=== PATIENT | female | born 1960 | race American Indian/Alaskan Native ===

== ENCOUNTER 2018-06-21 19:32 | Observation (INO) | payer MEDICAID ==
[2018-06-21 19:32] VITALS: BMI 51.7
[2018-06-21 20:03] LABS: BASO # 0.1 K/uL (0.0-0.2); BASO % 1.2 % (0.0-2.0); EOS # 0.2 K/uL (0.0-0.7); LYMPH # 2.5 K/uL (1.0-4.3); MEAN CELL VOLUME 88.2 fL (81.0-99.0); MEAN CORPUSCULAR HEMOGLOBIN 27.9 pg (27.0-31.0); MEAN CORPUSCULAR HGB CONC 31.6 g/dL (33.0-37.0); MEAN PLATELET VOLUME 8.9 fL (7.2-11.7); MONO # 0.7 K/uL (0.0-0.8); MONO % 8.9 % (0.0-10.0); NEUT # 4.4 K/uL (1.8-7.0); NEUT % 55.9 % (50.0-75.0); RBC 4.31 Mil/uL (3.80-5.20); RED CELL DISTRIBUTION WIDTH 15.2 % (11.5-14.5); WHITE BLOOD COUNT 7.8 K/uL (4.8-10.8)
--- NOTE | 2018-06-21 20:09 | C.PDOC ---
History Of Present Illness 57 female pt presents to the ER c/o "pressure" chest pain for x1 day in the middle of her chest. Pt reports she took 1 aspirin tablets and feels better. Associated sx includes SOB. Pt denies any other associated sx or complaints at t his time. Time Seen by Provider: 06/21/18 19:41 Chief Complaint (Nursing): Chest Pain History Per: Patient History/Exam Limitations: no limitations Onset/Duration Of Symptoms: Days (x1) Current Symptoms Are (Timing): Still Present Quality: Pressure Past Medical History Reviewed: Historical Data, Nursing Documentation, Vital Signs Vital Signs: Last Vital Signs Temp 98.6 F 06/21/18 19:36 Pulse 80 06/21/18 19:39 Resp 20 06/21/18 19:36 BP 150/63 06/21/18 19:36 Pulse Ox 98 06/21/18 19:36 - Medical History PMH: Asthma, Gastritis, HTN Family History: States: No Known Family Hx - Social History Hx Alcohol Use: No Hx Substance Use: No - Immunization History Hx Tetanus Toxoid Vaccination: No Hx Influenza Vaccination: No Hx Pneumococcal Vaccination: No Review Of Systems Except As Marked, All Systems Reviewed And Found Negative. Cardiovascular: Positive for: Chest Pain Respiratory: Positive for: Shortness of Breath Physical Exam - Physical Exam Appears: Non-toxic, No Acute Distress Skin: Normal Color, Warm, Dry Head: Atraumatic, Normacephalic Eye(s): bilateral: Normal Inspection, PERRL, EOMI Nose: Normal Oral Mucosa: Moist Chest: Symmetrical Cardiovascular: Rhythm Regular, No Murmur Respiratory: Normal Breath Sounds, No Rales, No Rhonchi, No Wheezing Gastrointestinal/Abdominal: Normal Exam, Soft, No Tenderness Extremity: Normal ROM Extremity: Bilateral: Atraumatic, Normal Color And Temperature Neurological/Psych: Oriented x3, Normal Speech ED Course And Treatment - Laboratory Results Result Diagrams: 06/21/18 19:55 06/21/18 19:55 O2 Sat by Pulse Oximetry: 98 (RA) Pulse Ox Interpretation: Normal Medical Decision Making Medical Decision Making: Assessment: chest pain plans: -- chem labs -- blood work -- EKG -- CXR [address] Perez, but there was no answer. [address] 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 I have reviewed the chart and agree that the record accurately reflects my personal performance of the history, physical exam, medical decision making, and the department course for this patient. I have also personally directed, reviewed, and agree with the discharge instructions and disposition.
[2018-06-21 20:12] LABS: ALB/GLOB RATIO 1.3 (1.0-2.1); BLOOD UREA NITROGEN 21 mg/dL (7-17); CALCIUM 9.2 mg/dl (8.6-10.4); GFR NON-AFRICAN AMERICAN > 60
[2018-06-21 20:17] LABS: ALT/SGPT 26 U/L (9-52); AST/SGOT 30 U/L (14-36)
[2018-06-21 20:23] LABS: B-TYPE NATRIURETIC PEPTIDE 99.2 pg/mL (0-900)
[2018-06-22] MEDS ORDERED: Albuterol-Ipratrop 3 mg / 0.5 (3 ml) UD INH PRN (00:58)
[2018-06-22 06:34] LABS: CK-MB 0.36 ng/mL (0.0-3.38)
[2018-06-22] MEDS: Pantoprazole 40 mg EC Tab PO SCH (09:59)
[2018-06-22] MEDS: Metoprolol Succinate 50 mg XL Tab PO SCH (09:59)
[2018-06-22] MEDS: Enoxaparin 40 mg Syringe SC SCH ×2 (10:00→10:02)
--- NOTE | 2018-06-22 12:07 | RAD ---
Date of service: 06/21/2018 PROCEDURE: CHEST RADIOGRAPH, 1 VIEW HISTORY: SOB COMPARISON: No prior FINDINGS: LUNGS: Clear. PLEURA: No pneumothorax or pleural fluid seen. CARDIOVASCULAR: No aortic atherosclerotic calcification present. Normal. OSSEOUS STRUCTURES: No significant abnormalities. VISUALIZED UPPER ABDOMEN: Normal. OTHER FINDINGS: None. IMPRESSION: No active disease.
--- NOTE | 2018-06-22 22:11 | CP.PCM.CON ---
History of Present Illness - History of Present Illness History of Present Illness: CC: Chest Pain 57 female pt presents to the ER c/o "pressure" chest pain for x1 day in the middle of her chest. Pt reports she took 1 aspirin tablets and feels better. Associated sx includes SOB. Pt denies any other associated sx or complaints at this time. Chief Complaint (Nursing): Chest Pain History Per: Patient History/Exam Limitations: no limitations Onset/Duration Of Symptoms: Days (x1) Current Symptoms Are (Timing): Still Present Quality: Pressure Past Medical History Reviewed: Historical Data, Nursing Documentation, Vital Signs Vital Signs: Last Vital Signs Temp 98.6 F 06/21/18 19:36 Pulse 80 06/21/18 19:39 Resp 20 06/21/18 19:36 BP 150/63 06/21/18 19:36 Pulse Ox 98 06/21/18 19:36 - Medical History PMH: Asthma, Gastritis, HTN Family History: States: No Known Family Hx - Social History Hx Alcohol Use: No Hx Substance Use: No - Immunization History Hx Tetanus Toxoid Vaccination: No Hx Influenza Vaccination: No Hx Pneumococcal Vaccination: No Review Of Systems Except As Marked, All Systems Reviewed And Found Negative. Cardiovascular: Positive for: Chest Pain Respiratory: Positive for: Shortness of Breath Physical Exam - Physical Exam Appears: Non-toxic, No Acute Distress Skin: Normal Color, Warm, Dry Head: Atraumatic, Normacephalic Eye(s): bilateral: Normal Inspection, PERRL, EOMI Nose: Normal Oral Mucosa: Moist Chest: Symmetrical Cardiovascular: Rhythm Regular, No Murmur Respiratory: Normal Breath Sounds, No Rales, No Rhonchi, No Wheezing Gastrointestinal/Abdominal: Normal Exam, Soft, No Tenderness Extremity: Normal ROM Extremity: Bilateral: Atraumatic, Normal Color And Temperature Neurological/Psych: Oriented x3, Normal Speech Past Patient History - Infectious Disease Hx of Infectious Diseases: None - Tetanus Immunizations Tetanus Immunization: Unknown - Past Medical History & Family History Past Medical History?: Yes - Past Social History Smoking Status: Never Smoked - CARDIAC Hx Hypertension: Yes - PULMONARY Hx Asthma: Yes - NEUROLOGICAL Hx Neurological Disorder: No - HEENT Hx HEENT Problems: No (glasses) - RENAL Hx Chronic Kidney Disease: No - ENDOCRINE/METABOLIC Hx Diabetes Mellitus Type 2: Yes - HEMATOLOGICAL/ONCOLOGICAL Hx Blood Disorders: No - INTEGUMENTARY Hx Dermatological Problems: No - MUSCULOSKELETAL/RHEUMATOLOGICAL Hx Musculoskeletal Disorders: No - GASTROINTESTINAL Hx Gastritis: Yes - GENITOURINARY/GYNECOLOGICAL Hx Genitourinary Disorders: No - PSYCHIATRIC Hx Substance Use: No - SURGICAL HISTORY Other/Comment: ENDOSCOPY - ANESTHESIA Hx Anesthesia: Yes Meds Allergies/Adverse Reactions: Allergies Allergy/AdvReac Type Severity Reaction Status Date / Time Penicillins Allergy Verified 06/21/18 19:40 - Medications Medications: Current Medications Albuterol/Ipratropium (Duoneb 3 Mg/0.5 Mg (3 Ml) Ud) 3 ml INH RQ6 PRN PRN Reason: Cough Amlodipine Besylate (Norvasc) 5 mg PO DAILY [facility] Last Admin: 06/22/18 09:59 Dose: 5 mg Aspirin (Aspirin) 325 mg PO DAILY [facility] Last Admin: 06/22/18 09:59 Dose: 325 mg Enoxaparin Sodium (Lovenox) 40 mg SC DAILY [facility] Last Admin: 06/22/18 10:02 Dose: Not Given Hydralazine HCl (Apresoline) 10 mg PO BID [facility] Last Admin: 06/22/18 17:57 Dose: 10 mg Hydrochlorothiazide (Hydrodiuril) 25 mg PO DAILY [facility] Last Admin: 06/22/18 10:00 Dose: 25 mg Loratadine (Claritin) 10 mg PO DAILY [facility] Last Admin: 06/22/18 09:59 Dose: 10 mg Losartan Potassium (Cozaar) 100 mg PO DAILY [facility] Last Admin: 06/22/18 09:59 Dose: 100 mg Metoprolol Succinate (Toprol Xl) 50 mg PO DAILY [facility] Last Admin: 06/22/18 09:59 Dose: 50 mg Pantoprazole Sodium (Protonix Ec Tab) 40 mg PO DAILY [facility] Last Admin: 06/22/18 09:59 Dose: 40 mg Rosuvastatin Calcium (Crestor) 2.5 mg PO [facility] Results - Vital Signs Recent Vital Signs: Last Vital Signs Temp 98.5 F 06/22/18 15:00 Pulse 72 06/22/18 16:30 Resp 20 06/22/18 15:00 BP 134/78 06/22/18 15:00 Pulse Ox 96 06/22/18 15:00 - Labs Result Diagrams: 06/21/18 19:55 06/21/18 19:55 Labs: Laboratory Results - last 24 hr 06/22/18 06/22/18 05:50 12:39 Total Creatine Kinase 75 66 CK-MB (Mass) 0.36 0.30 Troponin I < 0.0120 < 0.0120 Assessment & Plan - Assessment and Plan (Free Text) Assessment: 57 F with multiple cardiac risk factors admitted with chest pain relieved by Nitro and ASA Check ECHO and stress test Continue ASA and NTP
[2018-06-22] MEDS: Rosuvastatin Calcium 2.5 mg Tab PO SCH (22:37)
[2018-06-23] MEDS: Metoprolol Succinate 50 mg XL Tab PO SCH (10:21)
[2018-06-23] MEDS: Pantoprazole 40 mg EC Tab PO SCH (10:21)
--- NOTE | 2018-06-23 16:53 | HP ---
HISTORY OF PRESENT ILLNESS: The patient was admitted to the hospital complaining of chest pain. The patient . PHYSICAL EXAMINATION: GENERAL: The patient is awake, alert, oriented. VITAL SIGNS: Temperature 98, pulse 90. HEENT: Within normal limits. NECK: Supple. CHEST: Symmetrical. HEART: Regular. ABDOMEN: Soft. EXTREMITIES: No edema. IMPRESSION AND PLAN: Patient suffers from . The patient was placed on bed rest, supportive care. Jw Perez MD
--- NOTE | 2018-06-23 21:56 | CP.PCM.PN ---
Subjective - Date & Time of Evaluation Date of Evaluation: 06/23/18 Time of Evaluation: 09:50 - Subjective Subjective: Patient with no cardiac events Review Of Systems Except As Marked, All Systems Reviewed And Found Negative. Cardiovascular: Positive for: Chest Pain Respiratory: Positive for: Shortness of Breath Physical Exam - Physical Exam Appears: Non-toxic, No Acute Distress Skin: Normal Color, Warm, Dry Head: Atraumatic, Normacephalic Eye(s): bilateral: Normal Inspection, PERRL, EOMI Nose: Normal Oral Mucosa: Moist Chest: Symmetrical Cardiovascular: Rhythm Regular, No Murmur Respiratory: Normal Breath Sounds, No Rales, No Rhonchi, No Wheezing Gastrointestinal/Abdominal: Normal Exam, Soft, No Tenderness Extremity: Normal ROM Extremity: Bilateral: Atraumatic, Normal Color And Temperature Neurological/Psych: Oriented x3, Normal Speech Assessment & Plan - Assessment and Plan (Free Text) Assessment: 57 F with multiple cardiac risk factors admitted with chest pain relieved by Nitro and ASA Check ECHO and stress test Continue ASA and NTP Objective - Vital Signs/Intake and Output Vital Signs (last 24 hours): Temp Pulse Resp BP Pulse Ox 98.3 F 69 20 115/70 97 06/23/18 15:00 06/23/18 16:00 06/23/18 15:00 06/23/18 15:00 06/23/18 20:00 - Medications Medications: Current Medications Albuterol/Ipratropium (Duoneb 3 Mg/0.5 Mg (3 Ml) Ud) 3 ml INH RQ6 PRN PRN Reason: Cough Amlodipine Besylate (Norvasc) 5 mg PO DAILY [facility] Last Admin: 06/23/18 10:20 Dose: 5 mg Aspirin (Aspirin) 325 mg PO DAILY [facility] Last Admin: 06/23/18 10:20 Dose: 325 mg Enoxaparin Sodium (Lovenox) 40 mg SC DAILY [facility] Last Admin: 06/22/18 10:02 Dose: Not Given Hydralazine HCl (Apresoline) 10 mg PO BID [facility] Last Admin: 06/23/18 18:01 Dose: 10 mg Hydrochlorothiazide (Hydrodiuril) 25 mg PO DAILY [facility] Last Admin: 06/23/18 10:21 Dose: 25 mg Loratadine (Claritin) 10 mg PO DAILY [facility] Last Admin: 06/23/18 10:21 Dose: 10 mg Losartan Potassium (Cozaar) 100 mg PO DAILY [facility] Last Admin: 06/23/18 10:21 Dose: 100 mg Metoprolol Succinate (Toprol Xl) 50 mg PO DAILY [facility] Last Admin: 06/23/18 10:21 Dose: 50 mg Pantoprazole Sodium (Protonix Ec Tab) 40 mg PO DAILY [facility] Last Admin: 06/23/18 10:21 Dose: 40 mg Rosuvastatin Calcium (Crestor) 2.5 mg PO [facility] Last Admin: 06/22/18 22:37 Dose: 2.5 mg - Labs Labs: 06/21/18 19:55 06/21/18 19:55
[2018-06-23] MEDS: Rosuvastatin Calcium 2.5 mg Tab PO SCH (22:22)
[2018-06-24] MEDS ORDERED: Caffeine Citrated **INJ** 20 MG/ML IV ONE (07:45)
--- NOTE | 2018-06-24 08:19 | CP.PCM.PN ---
Subjective - Date & Time of Evaluation Date of Evaluation: 06/24/18 Time of Evaluation: 08:14 - Subjective Subjective: Medicine Progress Note - Dr Perez's Service Patient seen and examined at bedside. Patient was admitted for chest pressure that improved with aspirin. States that chest pressure has resolved. States that she did have a stress test and cardiac cath before in the past. From previous documentation in [facility] it appears that cath was at [facility] in 2014 and was normal. Patient is NPO for stress test today. Offers no complaints at this time. Objective - Vital Signs/Intake and Output Vital Signs (last 24 hours): Temp Pulse Resp BP Pulse Ox 98.3 F 65 20 115/70 97 06/23/18 15:00 06/24/18 00:46 06/23/18 15:00 06/23/18 15:00 06/24/18 03:58 - Medications Medications: Current Medications Albuterol/Ipratropium (Duoneb 3 Mg/0.5 Mg (3 Ml) Ud) 3 ml INH RQ6 PRN PRN Reason: Cough Amlodipine Besylate (Norvasc) 5 mg PO DAILY [facility] Last Admin: 06/23/18 10:20 Dose: 5 mg Aspirin (Aspirin) 325 mg PO DAILY [facility] Last Admin: 06/23/18 10:20 Dose: 325 mg Enoxaparin Sodium (Lovenox) 40 mg SC DAILY [facility] Last Admin: 06/22/18 10:02 Dose: Not Given Hydralazine HCl (Apresoline) 10 mg PO BID [facility] Last Admin: 06/23/18 18:01 Dose: 10 mg Hydrochlorothiazide (Hydrodiuril) 25 mg PO DAILY [facility] Last Admin: 06/23/18 10:21 Dose: 25 mg Loratadine (Claritin) 10 mg PO DAILY [facility] Last Admin: 06/23/18 10:21 Dose: 10 mg Losartan Potassium (Cozaar) 100 mg PO DAILY [facility] Last Admin: 06/23/18 10:21 Dose: 100 mg Metoprolol Succinate (Toprol Xl) 50 mg PO DAILY [facility] Last Admin: 06/23/18 10:21 Dose: 50 mg Pantoprazole Sodium (Protonix Ec Tab) 40 mg PO DAILY [facility] Last Admin: 06/23/18 10:21 Dose: 40 mg Rosuvastatin Calcium (Crestor) 2.5 mg PO HS [facility] Last Admin: 06/23/18 22:22 Dose: 2.5 mg - Labs Labs: 06/21/18 19:55 06/21/18 19:55 - Constitutional Appears: Non-toxic, No Acute Distress - Head Exam Head Exam: ATRAUMATIC, NORMAL INSPECTION, NORMOCEPHALIC - Eye Exam Eye Exam: EOMI, Normal appearance - ENT Exam ENT Exam: Mucous Membranes Moist - Neck Exam Neck Exam: Full ROM - Respiratory Exam Respiratory Exam: Clear to Ausculation Bilateral, NORMAL BREATHING PATTERN. abs ent: Rales, Rhonchi, Wheezes - Cardiovascular Exam Cardiovascular Exam: REGULAR RHYTHM, +S1, +S2 - GI/Abdominal Exam GI & Abdominal Exam: Soft. absent: Guarding, Rigid, Tenderness - Extremities Exam Extremities Exam: absent: Calf Tenderness Additional comments: +2 lower extremity edema bilaterally - Neurological Exam Neurological Exam: Alert, Awake, Oriented x3 - Skin Skin Exam: Normal Color, Warm Assessment and Plan - Assessment and Plan (Free Text) Assessment: Chest pain r/o ACS -Stable afebrile -Observe on telemetry -Troponins negative x 3 -EKG showed NSR at 69 bpm, left anterior fascicular block -NPO for stress test today -Echocardiogram report pending -Continue ASA 81 mg PO daily -Cardiology on consult, Dr Lopes, help appreciated Hypertension -Hydralazine 10mg PO BID -HCTZ 25mg PO daily -Losartan 100mg PO daily -Toprol XL 50mg PO daily Hyperlipidemia -F/U lipid panel -Continue Crestor 2.5mg PO HS Impaired Glucose Tolerance -F/U A1C History of asthma -Duonebs prn -Claritin 10mg PO daily GI/DVT ppx: -Protonix 40mg PO daily -Lovenox 40mg SC daily DISPO: Awaiting Stress test results. July D/C pending cardiology clearance. Plan discussed with Dr Moses Balbuena DO PGY-2
--- NOTE | 2018-06-24 12:23 | CARD ---
APPROVED REPORT Date of service: 06/21/2018 EKG Measurement Heart [id number] <Conclusion> Normal sinus rhythm Left anterior fascicular block Nonspecific T wave abnormality Abnormal ECG
[2018-06-24] MEDS: Metoprolol Succinate 50 mg XL Tab PO SCH (13:31)
[2018-06-24] MEDS: Enoxaparin 40 mg Syringe SC SCH (13:31)
[2018-06-24] MEDS: Pantoprazole 40 mg EC Tab PO SCH (13:31)
[2018-06-24 16:49] LABS: BASO % 0.5 % (0.0-2.0); EOS # 0.1 K/uL (0.0-0.7); EOS % 2.2 % (0.0-4.0); HEMOGLOBIN 12.3 g/dL (11.0-16.0); LYMPH # 2.1 K/uL (1.0-4.3); LYMPH % 32.7 % (20.0-40.0); MEAN CELL VOLUME 88.5 fL (81.0-99.0); MEAN CORPUSCULAR HEMOGLOBIN 28.6 pg (27.0-31.0); MEAN CORPUSCULAR HGB CONC 32.3 g/dL (33.0-37.0); MONO # 0.5 K/uL (0.0-0.8); MONO % 7.8 % (0.0-10.0); NEUT # 3.6 K/uL (1.8-7.0); NEUT % 56.8 % (50.0-75.0); RBC 4.3 Mil/uL (3.80-5.20); RED CELL DISTRIBUTION WIDTH 15.3 % (11.5-14.5); WHITE BLOOD COUNT 6.4 K/uL (4.8-10.8)
[2018-06-24 17:06] LABS: ALB/GLOB RATIO 1.3 (1.0-2.1); ALBUMIN 4.1 g/dL (3.5-5.0); ALT/SGPT 25 U/L (9-52); AST/SGOT 26 U/L (14-36); BLOOD UREA NITROGEN 19 mg/dL (7-17); CALCIUM 9.2 mg/dl (8.6-10.4); GFR NON-AFRICAN AMERICAN > 60
[2018-06-24 17:21] VITALS: RESP 20
[2018-06-24] MEDS: Rosuvastatin Calcium 2.5 mg Tab PO SCH (21:14)
[2018-06-25 06:52] LABS: BASO % 0.8 % (0.0-2.0); EOS # 0.2 K/uL (0.0-0.7); EOS % 3.1 % (0.0-4.0); HEMOGLOBIN 11.3 g/dL (11.0-16.0); LYMPH # 2.1 K/uL (1.0-4.3); LYMPH % 34.1 % (20.0-40.0); MEAN CORPUSCULAR HEMOGLOBIN 28.7 pg (27.0-31.0); MEAN CORPUSCULAR HGB CONC 32.6 g/dL (33.0-37.0); MONO # 0.6 K/uL (0.0-0.8); MONO % 9.8 % (0.0-10.0); NEUT # 3.2 K/uL (1.8-7.0); NEUT % 52.2 % (50.0-75.0); RBC 3.95 Mil/uL (3.80-5.20); RED CELL DISTRIBUTION WIDTH 15.4 % (11.5-14.5); WHITE BLOOD COUNT 6.1 K/uL (4.8-10.8)
[2018-06-25 07:51] LABS: ALB/GLOB RATIO 1.3 (1.0-2.1); ALBUMIN 3.5 g/dL (3.5-5.0); ALT/SGPT 30 U/L (9-52); AST/SGOT 38 U/L (14-36); BLOOD UREA NITROGEN 19 mg/dL (7-17); CALCIUM 8.8 mg/dl (8.6-10.4); GFR NON-AFRICAN AMERICAN > 60; HDL CHOLESTEROL 55 mg/dL (30-70)
[2018-06-25 07:53] LABS: LDL CHOLESTEROL 60 mg/dL (0-129)
[2018-06-25 08:14] LABS: INR 1.1; PROTHROMBIN TIME 11.8 SECONDS (9.7-12.2)
[2018-06-25] MEDS: Metoprolol Succinate 50 mg XL Tab PO SCH ×2 (10:04→13:47)
[2018-06-25] MEDS: Pantoprazole 40 mg EC Tab PO SCH (10:04)
[2018-06-25] MEDS ORDERED: Iohexol 350mg/ml 100 ML ONE (10:33)
[2018-06-25] MEDS ORDERED: Midazolam 2 MG/2 ML VIAL ONE ×2 (10:34→10:35)
[2018-06-25] MEDS ORDERED: Nitroglycerin 50mg in D5W 50 MG/250 ML BOTTLE IV ONE (10:35)
[2018-06-25] MEDS ORDERED: Lidocaine 2% MPF (5 ml) Inj ONE (10:39)
[2018-06-25] MEDS ORDERED: Verapamil 2 ML ONE (10:42)
[2018-06-25] MEDS ORDERED: Sodium Chloride 0.9% 1,000 ML IV SCH (11:30)
--- NOTE | 2018-06-25 12:30 | CP.PCM.PN ---
Subjective - Date & Time of Evaluation Date of Evaluation: 06/25/18 Time of Evaluation: 12:29 - Subjective Subjective: Patient s/p cath 1. Normal Coronaries 2. EF 55% Cardiac point of view cleared for discharge after 4pm today Objective - Vital Signs/Intake and Output Vital Signs (last 24 hours): Temp Pulse Resp BP Pulse Ox 98.8 F 58 L 20 143/86 98 06/25/18 07:00 06/25/18 07:07 06/25/18 07:00 06/25/18 07:00 06/25/18 07:00 - Medications Medications: Current Medications Albuterol/Ipratropium (Duoneb 3 Mg/0.5 Mg (3 Ml) Ud) 3 ml INH RQ6 PRN PRN Reason: Cough Amlodipine Besylate (Norvasc) 5 mg PO DAILY [facility] Last Admin: 06/25/18 10:03 Dose: Not Given Aspirin (Aspirin) 325 mg PO DAILY [facility] Last Admin: 06/25/18 10:03 Dose: Not Given Enoxaparin Sodium (Lovenox) 40 mg SC DAILY [facility] Last Admin: 06/24/18 13:31 Dose: Not Given Hydralazine HCl (Apresoline) 10 mg PO BID [facility] Last Admin: 06/25/18 10:03 Dose: Not Given Hydrochlorothiazide (Hydrodiuril) 25 mg PO DAILY [facility] Last Admin: 06/25/18 10:03 Dose: Not Given Sodium Chloride (Sodium Chloride 0.9%) 1,000 mls @ 80 mls/hr IV .[id number] [facility] Stop: 06/25/18 23:31 Loratadine (Claritin) 10 mg PO DAILY [facility] Last Admin: 06/25/18 10:03 Dose: Not Given Losartan Potassium (Cozaar) 100 mg PO DAILY [facility] Last Admin: 06/25/18 10:03 Dose: Not Given Metoprolol Succinate (Toprol Xl) 50 mg PO DAILY [facility] Last Admin: 06/25/18 10:04 Dose: Not Given Pantoprazole Sodium (Protonix Ec Tab) 40 mg PO DAILY [facility] Last Admin: 06/25/18 10:04 Dose: Not Given Rosuvastatin Calcium (Crestor) 2.5 mg PO HS [facility] Last Admin: 06/24/18 21:14 Dose: 2.5 mg - Labs Labs: 06/25/18 06:41 06/25/18 06:41 PT 11.8 SECONDS (9.7-12.2) 06/25/18 07:56 INR 1.1 06/25/18 07:56
[2018-06-25 16:29] VITALS: PULSE 65
--- NOTE | 2018-06-25 16:36 | CP.PCM.PN ---
Subjective - Date & Time of Evaluation Date of Evaluation: 06/25/18 Time of Evaluation: 16:37 - Subjective Subjective: Patient seen and examined at bedside s/p cath. Patient offers no complaints at this time. SHe wants ago. 12 point point systems reviewed and negative unless otherwise stated. Objective - Vital Signs/Intake and Output Vital Signs (last 24 hours): Temp Pulse Resp BP Pulse Ox 98.8 F 65 20 143/86 98 06/25/18 07:00 06/25/18 16:28 06/25/18 07:00 06/25/18 07:00 06/25/18 07:00 Intake and Output: 06/25/18 06/25/18 06:59 18:59 Intake Total 250 Balance 250 - Medications Medications: Current Medications Albuterol/Ipratropium (Duoneb 3 Mg/0.5 Mg (3 Ml) Ud) 3 ml INH RQ6 PRN PRN Reason: Cough Amlodipine Besylate (Norvasc) 5 mg PO DAILY [facility] Last Admin: 06/25/18 13:47 Dose: 5 mg Enoxaparin Sodium (Lovenox) 40 mg SC DAILY [facility] Last Admin: 06/24/18 13:31 Dose: Not Given Hydralazine HCl (Apresoline) 10 mg PO BID [facility] Last Admin: 06/25/18 10:03 Dose: Not Given Hydrochlorothiazide (Hydrodiuril) 25 mg PO DAILY [facility] Last Admin: 06/25/18 13:47 Dose: 25 mg Sodium Chloride (Sodium Chloride 0.9%) 1,000 mls @ 80 mls/hr IV .[id number] [facility] Stop: 06/25/18 23:31 Last Admin: 06/25/18 13:25 Dose: 80 mls/hr Loratadine (Claritin) 10 mg PO DAILY [facility] Last Admin: 06/25/18 13:46 Dose: 10 mg Losartan Potassium (Cozaar) 100 mg PO DAILY [facility] Last Admin: 06/25/18 13:47 Dose: 100 mg Metoprolol Succinate (Toprol Xl) 50 mg PO DAILY [facility] Last Admin: 06/25/18 13:47 Dose: 50 mg Pantoprazole Sodium (Protonix Ec Tab) 40 mg PO DAILY [facility] Last Admin: 06/25/18 10:04 Dose: Not Given Rosuvastatin Calcium (Crestor) 2.5 mg PO HS [facility] Last Admin: 06/24/18 21:14 Dose: 2.5 mg - Labs Labs: 06/25/18 06:41 06/25/18 06:41 PT 11.8 SECONDS (9.7-12.2) 06/25/18 07:56 INR 1.1 06/25/18 07:56 - Constitutional Appears: Well, Non-toxic, No Acute Distress - Head Exam Head Exam: ATRAUMATIC, NORMAL INSPECTION, NORMOCEPHALIC - Eye Exam Eye Exam: EOMI, Normal appearance - ENT Exam ENT Exam: Mucous Membranes Moist - Neck Exam Neck Exam: Normal Inspection - Respiratory Exam Respiratory Exam: Clear to Ausculation Bilateral. absent: Accessory Muscle Use, Rales - Cardiovascular Exam Cardiovascular Exam: RRR, +S1, +S2. absent: JVD - GI/Abdominal Exam GI & Abdominal Exam: Soft. absent: Tenderness - Extremities Exam Extremities Exam: Normal Capillary Refill, Pedal Edema (Trace) Additional comments: Dressing on left wrist. Clean, Dry, and Intact. - Neurological Exam Neurological Exam: Alert, Awake, Oriented x3 - Psychiatric Exam Psychiatric exam: Normal Affect, Normal Mood - Skin Skin Exam: Dry, Intact, Normal Color, Warm Assessment and Plan - Assessment and Plan (Free Text) Plan: Chest pain r/o ACS -Stable afebrile -Observe on telemetry -Troponins negative x 3 -EKG showed NSR at 69 bpm, left anterior fascicular block -NPO for stress test today -Echocardiogram report pending -Continue ASA 81 mg PO daily -Cardiology on consult, Dr Lopes, help appreciated Hypertension -Hydralazine 10mg PO BID -HCTZ 25mg PO daily -Losartan 100mg PO daily -Toprol XL 50mg PO daily Hyperlipidemia -F/U lipid panel -Continue Crestor 2.5mg PO HS Impaired Glucose Tolerance -F/U A1C History of asthma -Duonebs prn -Claritin 10mg PO daily GI/DVT ppx: -Protonix 40mg PO daily -Lovenox 40mg SC daily DISPO: Patient to be DC'd Today per Cardio. Patient to follow up with Cardio and her PMD. Plan discussed with Cullen Garcia, DO PGY-2
[2018-06-25 17:34] VITALS: BP 101/64; TEMP 98.6; O2SAT 96
--- NOTE | 2018-06-25 23:09 | CARD ---
APPROVED REPORT Date of service: 06/24/2018 EXAM: Two-dimensional and M-mode echocardiogram with Doppler and color Doppler. Other Information Quality : GoodRhythm : INDICATION Dyspnea Chest Pain 2D DIMENSIONS IVSd0.8 (0.7-1.1cm)LVDd5.1 (3.9-5.9cm) PWd0.8 (0.7-1.1cm)LA Tejtrn41 (18-58mL) LVDs3.5 (2.5-4.0cm)FS (%) 31.2 % LVEF (%)58.7 (>50%)LVEF (Saalzar's)65 % M-Mode DIMENSIONS Left Atrium (MM)4.31 (2.5-4.0cm)IVSd0.85 (0.7-1.1cm) Aortic Root3.29 (2.2-3.7cm)LVDd4.98 (4.0-5.6cm) Aortic Cusp Exc.2.45 (1.5-2.0cm)PWd0.88 (0.7-1.1cm) FS (%) 29 %LVDs3.53 (2.0-3.8cm) LVEF (%)56 (>50%) Mitral Valve MV E Xotkslhb38.0cm/sMV A Uvutbkgv26.9cm/sE/A ratio0.9 TDI Lateral E' Peak V10.48cm/sMedial E' Peak V11.77cm/sE/Lateral E'8.3 E/Medial E'7.4 Tricuspid Valve TR Peak [id number]/sTR Peak [id number] <Conclusion> suboptimal study Left ventricle: thickness: normal; size: normal; overall ejection fraction: 65%: diastolic filling pressures: normal Mitral valve: annulus: normal: leaflets: normal: excursion: normal; no significant trans-mitral gradient: no significant incompetence: left atrium: dilated Aortic valve: leaflets: normal: excursion: normal; no significant trans-aortic gradient: No significant incompetence: aortic root: normal Right sided Structures: Pulmonary valve: normal; no significant incompetence; Tricuspid valve: normal; no significant incompetence: Intra-cardiac hemodynamics: pulmonary systolic pressures: normal; central venous pressures: normal No pericardial effusion
--- NOTE | 2018-06-27 06:19 | CARD ---
APPROVED REPORT Date of service: 06/24/2018 Protocol: LEXISCAN Test Type: LEXISCAN STRESS Test Indications: CHEST PAIN Medical History: CP Target HR: 163 bpm Resting ECG: NSR W/ NS ST T Resting Heart Rate: 60 bpm Resting Blood Pressure: 128/80mmHg submaximum (85%): 139 bpm TEST SUMMARY [id number]:02..1.0./.0. PREINFSNHYPERV.09:[id number]/80.0. INFUSIONDOSE 100:300.00.01.061/.0. SACCUHHII11:[id number]/80.0. PROCEDURE Pharmacologic stress testing was performed using 0.4mg per 5ml of regadenoson given intravenously over 7-10 seconds. POST EXERCISE Reason for Termination: Protocol Completed Target HR: No Max HR: 61 bpm 67% of Maximum Predicted HR: 163 bpm Exercise duration: 00:30 min:sec, 0 Stage Exercise capacity: 1.0METs Max Blood Pressure: 128/80mmHg Blood Pressure response to exercise: normal resting BP - appropriate response Heart Rate response to exercise: appropriate Chest Pain: No, none Angina index: 0 Arrhythmia: No, none ST Change: No, none Deviation: 0 mm INTERPRETATION Stress EKG Conclusion: NEGATIVE LEXISCAN STRESS TEST NORMAL BP RESPONSE TO LEXISCAN NUCLEAR STUDIES TO BE READ SEPARATELY EXAM: Myocardial Perfusion STRESS/REST Imaging Protocol The imaging protocol used to acquire images was Stress Tc-99m/rest Tc-99m 1 day Rest Spect myocardial perfusion imaging was performed in supine position 45 minutes following the injection of 31.6 mCi of Tc-99 Myoview. Gated Stress Spect was performed 45 minutes after intravenous 13.1 mCi Tc-99 Myoview injection. The images were gated to evaluate regional wall motion and calculate ventricular ejection fraction.Images were reconstructed using backfilter projection method in short horizontal and verticle long axis. Spect slices were generated. RESTING DATA KYQ000.66qxPF4.60L/min ESV50.00mlMyocardial Spsf464.00g Av. Heart Rate69.00bpm EF62.00% STRESS DATA QSS297.49xsQQ7.40L/min ESV50.00mlMyocardial Lzzf341.00g EF61.00% Regional WT score at stress:0.00 Regional WM score at stress:0.00 Summed WT score at stress:4.00 Av. Heart Rate69.00bpmSummed WM score at stress:5.00 LV Perf. Quant 17 Seg. SSS8.00 17 Seg. SRS0.00 17 Seg. SDS8.00 Stress Defect Extent (% LAD)9.40Rest Defect Extent (% LAD)0.00Rev. Defect Extent (% LAD)9.40 Stress Defect Extent (% LCX)35.00Rest Defect Extent (% LCX)0.00Rev. Defect Extent (% LCX)31.30 Stress Defect Extent (% RCA)6.70Rest Defect Extent (% RCA)0.00Rev. Defect Extent (% RCA)6.70 Stress Defect Extent (% DALJIT)17.80Rest Defect Extent (% DALJIT)0.00Rev. Defect Extent (% DALJIT)16.50 IMPRESSION Normal Myocardial Perfusion exercise stress study Left Ventricle LV Function:Left ventricle systolic function is normal. The Ejection Fraction is 60-65%. Metabolism/Perfusion Defects: There is no stress-induced ischemia noted. There are no perfusion/metabolism defects. Conclusion 1. There is no stress-induced ischemia noted. 2. Left ventricle systolic function is normal. 3. The Ejection Fraction is 60-65%.
== END 2018-06-25 19:01 | disposition home or self-care (01) ==
LOC: C.ER 19:32 → C.9E 20:36 → C.6T 21:01
PROVIDERS: ADMIT Internal Medicine Pulmonary Disease; ATTEND Internal Medicine Pulmonary Disease
DX: R07.89 Other chest pain (principal); E11.9 Type 2 diabetes mellitus without complications; E78.5 Hyperlipidemia, unspecified; I10 Essential (primary) hypertension; J45.909 Unspecified asthma, uncomplicated; Z79.82 Long term (current) use of aspirin; K29.70 Gastritis, unspecified, without bleeding
CPT/HCPCS: 36415; 71045; 78452; 80053; 80061; 83036; 83735; 83880; 84100; 84484; 85025; 85610; 93005; 93017; 93306; 93458; 99152; 99153; 99285; A9502; C1769; C1887; G0378; J1644; J2001; J2250; J2785; J3010; J7030; Q9967